=== PATIENT | female | born 1970 | race Asian ===

== ENCOUNTER → 2019-04-21 09:47 | Outpatient (CLI) | payer OTHER, SELFPAY ==
[2019-04-21 08:39] VITALS: BMI 21.9
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
== END ==
PROVIDERS: Family Provider Nurse Practitioner Family; PCP Nurse Practitioner Family; Referring Provider Nurse Practitioner Family; Visit Provider Nurse Practitioner Family
DX: S69.92XA Unspecified injury of left wrist, hand and finger(s), initial encounter (principal); V89.2XXA Person injured in unspecified motor-vehicle accident, traffic, initial encounter
CPT/HCPCS: 73100; 73130; 73140

== ENCOUNTER → 2019-05-04 10:01 | Outpatient (CLI) | payer OTHER, SELFPAY ==
[2019-05-04 09:54] VITALS: BMI 21.9
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
== END ==
PROVIDERS: Family Provider Nurse Practitioner Family; PCP Nurse Practitioner Family; Referring Provider Physician Assistant; Visit Provider Physician Assistant
DX: M20.012 Mallet finger of left finger(s) (principal); M79.642 Pain in left hand; S63.502A Unspecified sprain of left wrist, initial encounter
CPT/HCPCS: 73130

== ENCOUNTER → 2019-06-01 10:43 | Outpatient (CLI) | payer OTHER, SELFPAY ==
[2019-05-11 13:47] VITALS: BMI 21.9
--- NOTE | 2019-06-01 10:44 | RAD_ITS ---
STUDY: X-RAY - LEFT HAND, ATTENTION 4 FINGER REASON FOR EXAM: Female, 48 years old. Pain, deformity TECHNIQUE: 3 view(s) of the finger were obtained. COMPARISON: None. FINDINGS: Normal metacarpal head. Normal metacarpophalangeal joint. Normal proximal phalanx. Normal middle phalanx. Small avulsion fracture along the dorsal lip of the fourth distal phalanx is not significantly changed since the prior study. Normal proximal interphalangeal joint. Normal distal interphalangeal joint. RAD/Finger(s) Min 2 Views IMPRESSION: Hyperflexion avulsion fracture of the fourth distal phalanx, stable since prior study. Electronically Signed: Jose Mcintosh MD ([place]) at 15:18 EST , Service support ,
== END ==
PROVIDERS: Family Provider Nurse Practitioner Family; PCP Internal Medicine; Referring Provider Physician Assistant; Visit Provider Physician Assistant
DX: M20.012 Mallet finger of left finger(s) (principal)
CPT/HCPCS: 73140

== ENCOUNTER 2019-06-29 14:00 | Outpatient (RCR) | payer OTHER, SELFPAY ==
[2019-05-11 13:47] VITALS: BMI 21.9
--- NOTE | 2019-06-07 08:43 | HP.OTEVAL ---
Patient's Visit Information MARIELLE ALEMAN is a 48 year old F, referred to Occupational Therapy by RICKY Hall, with a diagnosis of left 4th ladonna finger. Date of Evaluation: 06/06/19 Occupational Therapist: Florinda Olea, OTR/Kailyn, CHT - Subjective Subjective: This 48 year old female was seen for initial OT eval following a left 4th ladonna finger ( 6 weeks post immobilization) pt states she is concerned with limited ROM of her fingers and pain in her wrist. pt states during the day she is out of her splint and does notice her finger tip will hang down a little. 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 - ADLs Dressing: Socks, Shoes Fasteners: Tie shoes Kitchen: Chop with knife, Peel fruits & vegetables, Open jars, Open bottle caps, Take dish out of oven Miscellaneous: Handle money (change), Use computer keyboard - Pain left wrist/hand 4 Pain Intensity Range: 1, 6 - ROM MP: right RF 0/90 left 0/50 PIP: right RF 0/110 left 0/55 DIP: right 0/55 left LF 0/15 ROM Comments: right LF 0/90 left 0/ 60. 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 Pt will demo an increase in lateral and tripod pinch by 2# to increase pts independent with opening baggies, containers at PLOF by D/C. Goal:: Pt will demo the ability to form a composite fist to hold and receive 10 coins without dropping coins/ and coin manipulation/money mtg. tasks and ind. With manipulating fasteners for dressing by D/C. Pt will demo the ability to form a composite fist to return to performing BADLs and IADLS at [facility] by d/c. Goal:: Pt will report pain no greater than 1/10 with use of affected hand with BADLs and IADLs by d/c. - Rehabilitation General Assessment: Pt arrives 7 weeks post immobilization of left 4th digit. pt demo with limited ROM and strength limiting pts ind. with ADLS and IADLS. pt would benefit from skilled OT services 1-2x week for 4 weeks to return pt to PLOF. Today pt was ed.on ROM ex for digits and wirst pt demo understanding and agree to POC. - Anticipated Interventions Anticipated Interventions: A/AAROM/PROM, Strengthening, Modalities, Orthoses, Joint Protection/Energy Conservation - Visit Plan Frequency: 1-2x /Week Duration: 4 Weeks TEXT: Thank you for the opportunity to evaluate your patient. For Medicare and Medicare HMO plans, please review the plan of care and approve it. It will need to be FAXED BACK to us at [phone] for Medicare purposes. Please let me know if there are questions or concerns regarding this plan of care. Physician Signature: Date:
--- NOTE | 2019-08-07 16:25 | HP.OT.NRP ---
HP - Discharge Summary - Patient Information MARIELLE ALEMAN was seen in my office for initial evaluation on 06/06/19. The following Plan of Care was established for this patient: Initial Frequency: 1-2x /Week Initial Duration: 4 Weeks Plan: cont with ROM and functional grasp - Anticipated Interventions Anticipated Interventions: A/AAROM/PROM, Strengthening, Modalities, Orthoses, Joint Protection/Energy Conservation This patient was last seen in our office 06/29/19. Pertinent comments regarding their Occupational therapy will appear below: pt was seen for 6 OT sessions. Pt was progressing with ROM and use. Pt has not scheduled further apts and is D/C at this time. At this point I will be discontinuing this patient from occupational therapy. I would be happy to see this patient again in the future if found appropriate by the physician. Thank you! Florinda Olea, OTR/L, CHT
== END 2019-06-29 19:00 | disposition home or self-care (01) ==
LOC: OT 14:00
PROVIDERS: Family Provider Nurse Practitioner Family; PCP Internal Medicine; Referring Provider Physician Assistant; Visit Provider Physician Assistant
DX: M20.012 Mallet finger of left finger(s) (principal)
CPT/HCPCS: 97110; 97140; 97166